=== PATIENT | female | born 1970 | race Caucasian/White ===

== ENCOUNTER 2017-06-25 05:02 | Day surgery (SDC) | payer BC ==
[~2017-06-25] VITALS: Ht 160 cm; Wt 44.5 kg
[~2017-06-25 05:02] MED LIST: BENTYL10 MG PO; CARAFATE1 G PO; IMODIUM2 MG PO; OMEPRAZOLE20 M1 PO
[2017-06-25 05:53] VITALS: BP 111/58; Ht 160 cm; Wt 44.5 kg
[2017-06-25] MEDS ORDERED: DILAUDID2 MG PO (09:04)
== END 2017-06-25 12:40 | disposition home or self-care (01) ==
LOC: D.OPS 05:02 → EDBD 07:30 → D.OPS 07:30
DX: K81.1 Chronic cholecystitis (principal); F17.200 Nicotine dependence, unspecified, uncomplicated; K58.9 Irritable bowel syndrome, unspecified; Z01.812 Encounter for preprocedural laboratory examination

== ENCOUNTER → 2018-01-21 12:36 | Outpatient (CLI) | payer MEDICAID ==
[2017-06-25 05:53] VITALS: BMI 17.4
[~2018-01-21 12:36] MED LIST changes: +DILAUDID2 MG PO
[2018-01-22 09:18] LABS: ANA REFLEX - DIRECT Negative (Negative)
[2018-01-25 13:14] LABS: IGG SUBCLASS 1 677 mg/dL (248-810); IGG SUBCLASS 2 339 mg/dL (130-555); IGG SUBCLASS 3 26 mg/dL (15-102); IGG SUBCLASS 4 6 mg/dL (2-96)
== END | disposition home or self-care (01) ==
LOC: D.LAB 12:36
PROVIDERS: Internal Medicine Gastroenterology
DX: R10.9 Unspecified abdominal pain (principal); R19.7 Diarrhea, unspecified

== ENCOUNTER → 2018-01-28 07:17 | Outpatient (CLI) | payer MEDICAID ==
[2017-06-25 05:53] VITALS: BMI 17.4
== END | disposition home or self-care (01) ==
LOC: D.RAD 07:17
DX: R19.7 Diarrhea, unspecified (principal); R14.3 Flatulence; R14.0 Abdominal distension (gaseous); R10.30 Lower abdominal pain, unspecified

== ENCOUNTER → 2019-05-17 12:28 | Outpatient (CLI) | payer MEDICAID ==
[2017-06-25 05:53] VITALS: BMI 17.4
--- NOTE | 2019-05-24 12:04 | EC ---
PATIENT:LATASHA MARTE DATE OF SERVICE: 05/17/19 SEX: F MEDICAL RECORD: [id number] DATE OF : [birth year] LOCATION:[facility] AGE OF PATIENT: 48 ADMISSION DATE: 05/17/19 REFERRING PHYSICIAN: INTERPRETING PHYSICIAN: MAGALYS RADFORD MD ECHOCARDIOGRAM REPORT ECHO CHARGES 4 ECHO COMPLETE Date: 05/17/19 CLINICAL DIAGNOSIS: MITRAL REGURG/PALPIATAIONS ECHOCARDIOGRAPHIC MEASUREMENTS (adult normal given) AC root (d.<3.7cm) 3.0 cm LV Septum d (<1.2 cm> 1.0 cm Valve Excursion 1.3 cm LV Septum (systole) 1.1 cm Left Atria (s.<4.0cm> 3.8 cm LVPW d(<1.2cm) 1.1 cm RV (d.<2.3cm) 2.5 cm LVPW (sytole) 1.4 cm LV diastole(<5.6CM) 3.8 cm MV E-F(>70mm/sec) cm LV systole 2.6 cm LVOT Diameter 1.7 cm MV exc.(>10mm) 1.5 cm Est.ejection fraction (50-75%) % DOPPLER: LVIT cm/sec A 89.0 cm/sec E 63.0 cm/sec LA cm/sec RVSP 15 mmHg LVOT 58 cm/sec AOP1/2T m/s Asc. Ao 110 cm/sec RVOT 67 cm/sec RA cm/sec PA 113 cm/sec AV Gradient Peak 4.88 mmHg AV Mean 2.30 mmHg AV Area 1.5 cm MV Gradient Peak 1.06 mmHg MV Mean 1.59 mmHg MV Area cm COMMENTS: [employer] Supervisor: Sofie HENDRIX Personal Injury Specialist: 1 Dr. Radford TAPE# PACS Pericardial Effusion Y DATE OF SERVICE: 05/17/2019 PROCEDURE: Echocardiogram. FINDINGS: 1. Left ventricular chamber size is within normal limits. Left ventricular systolic function is normal. Overall ejection fraction estimated at 55%. 2. Left atrium, right atrium, and right ventricular chamber sizes are within normal limits. 3. Valvular structures have normal structure and motion. ECHOCARDIOGRAM REPORT [id number] LATASHA MARTE 4. Doppler interrogation only reveals mild mitral regurgitation, no other valvular insufficiency or stenosis. 5. No evidence of pericardial effusion or left ventricular thrombus. TRANSINT:[id number] Voice Confirmation ID: [id number] DOCUMENT ID: [id number] MAGALYS RADFORD MD at 1204 CC: [id number] DICTATION DATE: 05/23/19 1134 CHIEF RECORDIST: 05/23/19 1144 DEP CLI 05/17/19 [id number] [place] [address]
== END | disposition home or self-care (01) ==
LOC: D.HCCARDIO 04-21 09:00
PROVIDERS: ATTEND Internal Medicine Interventional Cardiology
DX: I34.0 Nonrheumatic mitral (valve) insufficiency (principal)